=== PATIENT | female | born 1940 | race Caucasian/White ===

== ENCOUNTER 2017-06-27 20:58 | Inpatient (IN) | payer MEDICAID ==
[~2017-06-27] VITALS: Ht 162.6 cm; Wt 71.1 kg
[~2017-06-27 20:58] MED LIST: PANT40TA3 PO; ZOF8 PO
[2017-06-28] MEDS ORDERED: ONDANSETRON 4 MG INJ IV STA (01:13)
[2017-06-28] MEDS ORDERED: SOD CHLORIDE 0.9% 500 ML IV STA (01:13)
[2017-06-28] MEDS ORDERED: morphine 4 MG/ML VIAL IV STA (01:13)
[2017-06-28 02:23] LABS: BASOPHILS % 0.4 % (0.0-2.0); EOSINOPHILS % 0.4 % (0.0-7.0); HEMOGLOBIN 13.6 g/dl (12.0-16.0); LYMPHOCYTES # 2.4 10^3/ul (0.8-2.9); LYMPHOCYTES % 30.6 % (15.0-51.0); MEAN CORPUSCULAR HEMOGLOBIN 28.3 pg (29.0-33.0); MEAN CORPUSCULAR HGB CONC 32.4 g/dl (32.0-37.0); MEAN CORPUSCULAR VOLUME 87.5 fl (82.0-101.0); MEAN PLATELET VOLUME 10.9 fl (7.4-10.4); MONOCYTE # 0.4 10^3/ul (0.3-0.9); MONOCYTES % 5.5 % (0.0-11.0); NEUTROPHIL # 4.9 10^3/ul (1.6-7.5); NEUTROPHILS % 62.8 % (39.0-77.0); PLATELET COUNT 197 10^3/UL (140-415); RED CELL DISTRIBUTION WIDTH 13.3 % (11.5-14.5); WHITE BLOOD COUNT 7.8 10^3/ul (4.8-10.8)
[2017-06-28] MEDS ORDERED: TYL500 PO (02:33)
[2017-06-28 02:43] LABS: ALANINE AMINOTRANSFERASE 42 IU/L (13-69); ALBUMIN 4.1 g/dl (3.3-4.9); ALKALINE PHOSPHATASE 59 IU/L (42-121); ANION GAP 13 (8-16); ASPARTATE AMINO TRANSFERASE 28 IU/L (15-46); BILIRUBIN,INDIRECT 0.7 mg/dl (0-1.1); BILIRUBIN,TOTAL 0.7 mg/dl (0.2-1.3); BLOOD UREA NITROGEN 12 mg/dl (7-20); CALCIUM 9.7 mg/dl (8.4-10.2); CARBON DIOXIDE 26 mmol/L (21-31); CHLORIDE 111 mmol/L (97-110); CREATININE 0.68 mg/dl (0.44-1.00); GLUCOSE 109 mg/dl (70-220); POTASSIUM 3.8 mmol/L (3.5-5.1); SODIUM 146 mmol/L (135-144); TOTAL PROTEIN 7.8 g/dl (6.1-8.1)
[2017-06-28 02:58] LABS: TROPONIN-I < 0.012 ng/ml (0.00-0.12)
--- NOTE | 2017-06-28 03:12 | RADRPT ---
PROCEDURE: CT Abdomen and Pelvis without contrast. CLINICAL INDICATION: Abdominal pain TECHNIQUE: CT scan of the abdomen and pelvis without contrast was performed on a multidetector hig h-resolution CT scanner. The patient was scanned without intravenous contrast. Coronal and sagittal reformatted images were obtained from the axial source images. Images were reviewed on a high-resol Q-go PACS workstation. The total exam CTDI equals 18.76 mGy and the total exam DLP equals 1079.97 m Gy-cm. One or more the following dose reduction techniques were utilized: Automated exposure control, adjus tment of the mA and / or kV according to patient's size, or use of iterative reconstruction techniqu e. COMPARISON: None. FINDINGS: Calcification in thoracoabdominal aorta. Minimal linear atelectasis/fibrosis at lung bases. The isidro ent appears to be status post cholecystectomy. Appearance of marked intrahepatic biliary dilatation in the posterior left and right hepatic lobes which appears to extend to the surgical clips in the p christian hepatis region. The diameter of the extrahepatic hepatic bile duct in the head of the pancreas appears to be approximately 8 mm which can be seen status post cholecystectomy. There is mild scallo ping of the liver margin suggestive of cirrhosis. No abnormality is seen in the spleen. No abnormali ty seen in the pancreas. There is appearance of minimal "hazy" increased density in the central mese ntery which is nonspecific. There is an approximate 8 mm oval structure with density apparently grea ter than fluid arising from the lateral lower left kidney. A small solid mass is possible. There is minimal left hydronephrosis. No right kidney is seen. There is appearance of attenuation of the adrenals. No adrenal mass is seen. No abdominal aortic aneurysm is seen. Calcification in right jennifer c artery. There is appearance of diffuse bladder wall thickening which may at least partially be due to underdistension. The patient appears to be status post hysterectomy. Several diverticula in sigm oid, descending, transverse and ascending colon. There is no specific evidence of acute diverticulit is seen. Surgical clip in the right lateral pelvis. No evidence of acute appendicitis seen. The sugg estion of an unremarkable appendix. No dilated small bowel loops are seen. Small hiatal hernia. The stomach is not distended. No enlarged lymph nodes are seen in the abdomen or pelvis. Degenerative ch anges in thoracolumbar spine. Degenerative changes at sacroiliac joints. Mild levoscoliosis of lumba r spine. IMPRESSION: Severe intrahepatic biliary dilatation in the posterior left and right hepatic lobes of uncertain et iology which appears to extend to surgical clips in the giovanny hepatis region. Cirrhosis. There is an approximate 8 mm oval structure with density apparently greater than fluid arising from the lateral lower left kidney. A small solid mass is possible. Renal ultrasound can be performed. Minimal left hydronephrosis. No right kidney seen. Small hiatal hernia. Please see above. RPTAT: HJES .Nuno Sandhu MD, Date Time Electronically viewed and signed by .Nuno Sandhu MD, on 06/28/2017 03:12 .S/
--- NOTE | 2017-06-28 03:18 | RADRPT ---
PROCEDURE: XR Chest. CLINICAL INDICATION: Abdominal pain. Chest pain. TECHNIQUE: PA and Lateral views of the chest were obtained. COMPARISON: None. FINDINGS: Cardiomegaly with atherosclerotic calcifications in the thoracic aorta. Hypoinflated lungs and patie nt body habitus accentuate pulmonary vascular markings. The lungs otherwise clear. No signs of pleur al fluid or pneumothorax are seen. The osseous structures and soft tissues are unremarkable. IMPRESSION: No evidence for active cardiopulmonary disease. RPTAT: [facility] Physician Carlos Date Time Electronically viewed and signed by Physician Carlos on 06/28/2017 03:18 RS/
--- NOTE | 2017-06-28 03:26 | ERD ---
ER Documentation Chief Complaint Chief Complaint N/V/D STARTING TODAY WITH AP HPI 77-year-old female with nausea vomiting diarrhea and started today with associated abdominal pain. Pain is mild to moderate intensity diffuse in location no exacerbating alleviating factors and started 6 hours ago. 2 episodes of vomiting which nonbilious nonbloody. Tubes of diarrhea which are nonbloody. Patient has had 3 episodes of this over the past month and a half per the family. No fevers no chills. No other current complaints. No sick contacts. ROS All systems reviewed and are negative except as per history of present illness. Medications Home Meds Reported Medications Acetaminophen* (Tylenol*) 500 Mg Tab, 1000 MG PO Q4H Y for PAIN AND OR ELEVATED TEMP, TAB 06/28/17 Discontinued Scripts Ondansetron Hcl* (Zofran* ODT) 8 mg -ODT Tab.disper, 8 MG PO Q6H Y for NAUSEA AND OR VOMITING for 30 Days, TAB Prov:VYASCLAIR V. SUIT ATTENDANT 10/16/15 Pantoprazole* (Protonix*) 40 Mg Tablet.dr, 40 MG PO DAILY for 30 Days, TAB Take 30 mins before breakfast Prov:VYASADNICLAIR V. SUIT ATTENDANT 10/16/15 Allergies Allergies: Coded Allergies: No Known Drug Allergies (Unverified Allergy, Unknown, 06/28/17) PMhx/Soc History of Surgery: Yes (Back sx, cholecystectomy, hernia repair, kidney stone removal) Anesthesia Reaction: No Hx Neurological Disorder: No Hx Respiratory Disorders: No Hx Cardiac Disorders: No Hx Psychiatric Problems: No Hx Miscellaneous Medical Probl: No Hx Alcohol Use: Yes (Occasionally) Hx Substance Use: No Hx Tobacco Use: No Physical Exam Vitals Vital Signs Date Time Temp Pulse Resp B/P Pulse Ox O2 Delivery O2 Flow Rate FiO2 06/28/17 01:00 97.8 68 22 127/79 100 Room Air 06/27/17 21:14 97.4 59 18 180/79 97 Physical Exam Const: [] Head: Atraumatic Eyes: Normal Conjunctiva ENT: Normal External Ears, Nose and Mouth. Neck: Full range of motion..~ No meningismus. Resp: Clear to auscultation bilaterally Cardio: Regular rate and rhythm, no murmurs Abd: Soft, non tender, non distended. Normal bowel sounds Skin: No petechiae or rashes Back: No midline or flank tenderness Ext: No cyanosis, or edema Neur: Awake and alert Psych: Normal Mood and Affect Result Diagram: 06/28/1714206/28/17142 Results 24 hrs Laboratory Tests Test 06/28/17 01:43 White Blood Count 7.810^3/ul Red Blood Count 4.8010^6/ul Hemoglobin 13.6g/dl Hematocrit 42.0% Mean Corpuscular Volume 87.5fl Mean Corpuscular Hemoglobin 28.3pg Mean Corpuscular Hemoglobin Concent 32.4g/dl Red Cell Distribution Width 13.3% Platelet Count 57399^3/UL Mean Platelet Volume 10.9fl Neutrophils % 62.8% Lymphocytes % 30.6% Monocytes % 5.5% Eosinophils % 0.4% Basophils % 0.4% Nucleated Red Blood Cells % 0.0/100WBC Neutrophils # 4.910^3/ul Lymphocytes # 2.410^3/ul Monocytes # 0.410^3/ul Eosinophils # 0.010^3/ul Basophils # 0.010^3/ul Nucleated Red Blood Cells # 0.010^3/ul Sodium Level 146mmol/L Potassium Level 3.8mmol/L Chloride Level 111mmol/L Carbon Dioxide Level 26mmol/L Anion Gap 13 Blood Urea Nitrogen 12mg/dl Creatinine 0.68mg/dl Glucose Level 109mg/dl Calcium Level 9.7mg/dl Total Bilirubin 0.7mg/dl Direct Bilirubin 0.00mg/dl Indirect Bilirubin 0.7mg/dl Aspartate Amino Transf (AST/SGOT) 28IU/L Alanine Aminotransferase (ALT/SGPT) 42IU/L Alkaline Phosphatase 59IU/L Troponin I < 0.012ng/ml Total Protein 7.8g/dl Albumin 4.1g/dl Globulin 3.70g/dl Albumin/Globulin Ratio 1.10 Lipase 53U/L Current Medications Medications (Trade) Dose Ordered Sig/Elle Route PRN Reason Start Time Stop Time Status Last Admin Dose Admin Sodium Chloride (NS) 500 ml @ 500 mls/hr Q1H STAT IV 06/28/17 01:13 06/28/17 02:12 DC Morphine Sulfate (morphine) 4 mg ONCE STAT IV 06/28/17 01:13 06/28/17 01:14 DC Ondansetron HCl (Zofran Inj) 4 mg ONCE STAT IV 06/28/17 01:13 06/28/17 01:14 DC Procedures/MDM EKG: Rate/Rhythm: [Normal Sinus Rhythm] QRS, ST, T-waves: [No changes consistent w/ acute ischemia] Impression: [No evidence of ischemia or arrhythmia] Chest X-ray 1V Interpreted by me: Soft Tissue: No acute abnormalities Bones: No acute abnormalities Mediastinum/Cardiac Silhouette/Lungs: [No acute abnormalities] Medical decision-makin-year-old female with intractable abdominal pain. At this point patient will be admitted to hospitalist for further evaluation and management. Really no evidence of surgical abdomen on physical exam, patient continues to complain of pain. Mesenteric ischemia was a consideration , however patient's exam, history, lab work is not consistent with this at this time Departure Diagnosis: Primary Impression: Abdominal pain Abdominal location: generalized Qualified Code: R10.84 - Generalized abdominal pain Condition: Stable LILIBETH LEE Jun 28, 2017 03:26
[2017-06-28 04:03] VITALS: TEMP 97.8
[2017-06-28 04:30] VITALS: BP 139/68; PULSE 69; RESP 18
[2017-06-28 04:42] VITALS: Ht 162.6 cm; Wt 71.1 kg
[2017-06-28] MEDS ORDERED: morphine 4 MG/ML VIAL IV PRN (06:00)
[2017-06-28] MEDS ORDERED: ALBUTEROL/IPRATROPIUM (NEB) 3 ML AMP HHN PRN (06:30)
[2017-06-28] MEDS ORDERED: ONDANSETRON 4 MG INJ IV PRN (06:30)
[2017-06-28] MEDS ORDERED: NACL 0.9% 3 ML SYG IV SCH (06:30)
[2017-06-28] MEDS: DEXTROSE 5%-0.45% NACL 1,000 ML IV SCH ×3 (06:50→19:26)
--- NOTE | 2017-06-28 07:17 | HP ---
Date/Time of Note Date/Time of Note DATE: 06/28/17 TIME: 07:05 Assessment/Plan VTE Prophylaxis VTE Prophylaxis Intervention: SCD's Lines/Catheters IV C[facility]ter Type (from [facility]): [facility] Assessment/Plan Assessment/Plan ASSESSMENT 77 year old female with Past medical history of ovarian fibroid, status post total abdominal hysterectomy, bilateral salpingo-oophorectomy, resection of the ureter, nausea and vomiting, incarcerated ventral hernia with small bowel obstruction , status post exploratory laparotomy with repair of incarcerated ventral hernia and lysis of adhesions here was a progressively worsening abdominal pain, diarrhea and bilious vomiting with a CT showing severe intrahepatic biliary ductal dilatation, cirrhosis and left lower kidney density , mass PLAN -No clear etiology for the patient's abdominal pain better based on CT scan results, but seems most likely Gastroenteritis vs biliary in nature. -Keep n.p.o. with IV fluid for now -Plan is to obtain MRCP and place a GI consult -Continue pain management -Stool culture and C. difficile -Urology consult for evaluation of left kidney density/mass HPI/ROS Admit Date/Time Admit Date/Time Jun 28, 2017 at 03:25 Hx of Present Illness This is a 77 year old female with Past medical history of ovarian fibroid, status post total abdominal hysterectomy, bilateral salpingo-oophorectomy, resection of the ureter, nausea and vomiting, incarcerated ventral hernia with small bowel obstruction , status post exploratory laparotomy with repair of incarcerated ventral hernia , lysis of adhesions in 2010, who presented to the emergency room complaining of abdominal pain, nausea, vomiting and diarrhea. Patient intermittently has chronic abdominal pain but she has been having progressively worsening pain for the past month or so. Pain is diffuse for the most part and described as sharp with associated nausea and vomiting described as bilious, but non-bloody. She has been having about pain watery diarrhea almost on a daily basis last being yesterday. Denied recent travel and sick contacts. When she presented to the ER, vitals stable. Labs shows a sodium of 146 and chloride 111 otherwise CBC and CMP are within normal limits. Chest x-ray was no acute findings. CT abdomen pelvis shows severe intrahepatic biliary dilatation in the posterior left and right hepatic lobes of uncertain etiology which appears to extend to surgical clips in the giovanny hepatis region. Cirrhosis. There is an approximate 8 mm oval structure with density apparently greater than fluid arising from the lateral lower left kidney. A small solid mass is possible. PMH/Family/Social Social History Smoking Status: Never smoker Exam/Review of Systems Vital Signs Vitals Vital Signs Date Time Temp Pulse Resp B/P Pulse Ox O2 Delivery O2 Flow Rate FiO2 06/28/17 04:30 97.9 69 18 139/68 96 Room Air Exam Constitutional: alert, other (No acute distress) Head: atraumatic, normocephalic Eyes: EOMI, PERRL Respiratory: clear to auscultation, normal air movement Cardiovascular: regular rate and rhythm Gastrointestinal: soft, tender Extremities: normal pulses Labs Result Diagram: 06/28/17 01406/28/17142 Medications Medications Current Medications Dextrose/Sodium Chloride (D5-1/2ns) 1,000 ml @ 100 mls/hr Q10H IV Last administered on 06/28/17t 06:50; Admin Dose 100 MLS/HR; Start 06/28/17 at 06: 01 Ondansetron HCl (Zofran Inj) 4 mg Q6H PRN IV NAUSEA AND/OR VOMITING; Start at 06:30 Morphine Sulfate (morphine) 4 mg Q4H PRN IV SEVERE PAIN LEVEL 7-10; Start at 06:00 Famotidine (Pepcid Iv) 20 mg Q12 IV ; Start 06/28/17 at 09:00 LILIBETH WADE MD Jun 28, 2017 07:16
[2017-06-28 07:44] VITALS: BP 136/67; RESP 20
[2017-06-28] MEDS: FAMOTIDINE 20 MG INJ IV SCH ×2 (08:09→20:17)
[2017-06-28 08:36] LABS: BASOPHILS % 0.6 % (0.0-2.0); EOSINOPHILS # 0.1 10^3/ul (0.0-0.5); EOSINOPHILS % 1.5 % (0.0-7.0); HEMATOCRIT 38.9 % (37.0-47.0); HEMOGLOBIN 12.9 g/dl (12.0-16.0); LYMPHOCYTES # 2.5 10^3/ul (0.8-2.9); LYMPHOCYTES % 36.8 % (15.0-51.0); MEAN CORPUSCULAR HGB CONC 33.2 g/dl (32.0-37.0); MEAN CORPUSCULAR VOLUME 87.4 fl (82.0-101.0); MEAN PLATELET VOLUME 10.6 fl (7.4-10.4); MONOCYTE # 0.6 10^3/ul (0.3-0.9); MONOCYTES % 8.4 % (0.0-11.0); NEUTROPHIL # 3.5 10^3/ul (1.6-7.5); NEUTROPHILS % 52.6 % (39.0-77.0); PLATELET COUNT 178 10^3/UL (140-415); RED BLOOD COUNT 4.45 10^6/ul (4.20-5.40); RED CELL DISTRIBUTION WIDTH 13.1 % (11.5-14.5); WHITE BLOOD COUNT 6.7 10^3/ul (4.8-10.8)
[2017-06-28 09:09] LABS: ALBUMIN 3.5 g/dl (3.3-4.9); ALBUMIN/GLOBULIN RATIO 1.02; BILIRUBIN,INDIRECT 0.7 mg/dl (0-1.1); BILIRUBIN,TOTAL 0.7 mg/dl (0.2-1.3); CREATININE 0.65 mg/dl (0.44-1.00); MAGNESIUM 1.8 mg/dl (1.7-2.5); PHOSPHORUS 3.2 mg/dl (2.5-4.9); POTASSIUM 3.5 mmol/L (3.5-5.1); TOTAL PROTEIN 6.9 g/dl (6.1-8.1)
[2017-06-28 11:23] LABS: ADD UMIC NO; UR ASCORBIC ACID NEGATIVE (NEGATIVE); UR BILIRUBIN (Dip) NEGATIVE (NEGATIVE); UR BLOOD (Dip) NEGATIVE (NEGATIVE); UR CLARITY CLEAR (CLEAR); UR COLOR YELLOW (YELLOW); UR GLUCOSE (Dip) NEGATIVE (NEGATIVE); UR KETONES (Dip) NEGATIVE (NEGATIVE); UR LEUKOCYTE ESTERASE (Dip) NEGATIVE Leu/ul (NEGATIVE); UR NITRITE (Dip) NEGATIVE (NEGATIVE); UR SPECIFIC GRAVITY (Dip) 1.012 (1.003-1.030); UR TOTAL PROTEIN (Dip) NEGATIVE (NEGATIVE); UR UROBILINOGEN (Dip) NEGATIVE (NEGATIVE)
[2017-06-28] MEDS ORDERED: morphine 2 MG INJ IV PRN (14:00)
[2017-06-28 15:31] VITALS: BP 138/65; RESP 20
--- NOTE | 2017-06-28 18:52 | RADRPT ---
PROCEDURE: MRI abdomen without contrast; MRCP CLINICAL INDICATION: abdominal pain TECHNIQUE: Multiplanar, multisequence imaging of the abdomen was obtained without contrast. Imagi ng includes axial T2, T2 fat sat, in and out of phase gradient images, and noncontrast T1 fat-satura param images. In addition, a dedicated high T2 signal intensity MRCP images were obtained in multiple planes with 3-D reconstructions. COMPARISON: CT 06/28/2017 FINDINGS: MRCP: The gallbladder is not visualized. Along the posterior margin of both the left and right hepatic lob e there are numerous serpiginous appearing T2 hyperintense structures. The remaining intrahepatic bi liary ducts are otherwise nondilated and the common duct is borderline enlarged measuring 9 mm with no evidence of filling defect along its course. The pancreatic duct is not dilated. MRI abdomen: The remaining hepatic parenchyma is otherwise uniform signal intensity without gross evidence of a h epatic mass. Flow void is seen within the portal vein. The right kidney is resected. There is mild prominence of the left renal calyces without ion hydro nephrosis. There is uniform signal intensity of the left renal parenchyma. There is a small hiatus hernia. The pancreas is uniform without surrounding inflammation. There is no evidence of bowel obstruction or inflammatory changes of the mesentery. There are no en larged lymph nodes. There is no acute osseous abnormality. Degenerative changes seen in the lumbar spine. Aortic atherosclerotic changes are partially visualized. IMPRESSION: Numerous T2 hyperintense serpiginous structures are seen along the posterior margin of the left and right hepatic lobes and this is indeterminate. These could represent marginal dilated biliary ducts versus serpiginous varicose vessels. This can be better assessed with contrast enhanced CT or MRI to rule out vascular origin of these structures. No other intrahepatic biliary ducts appear dilated and there is no evidence of choledocholithiasis. The common duct is mildly enlarged however this may be related to postcholecystectomy physiology. Small hiatus hernia. Status post right nephrectomy. There is mild prominence of the left renal calyces without ion hydr onephrosis. No evidence of bowel obstruction. RPTAT: AA .Zayda Marsh MD, MD Date Time Electronically viewed and signed by .Zayda Marsh MD, MD on 06/28/2017 18:52 .J/
[2017-06-28 19:21] VITALS: BP 136/66; RESP 16
[2017-06-29 02:48] VITALS: BP 132/66; RESP 16
[2017-06-29] MEDS: DEXTROSE 5%-0.45% NACL 1,000 ML IV SCH ×2 (05:36→21:21)
[2017-06-29 05:57] LABS: BASOPHIL # 0.1 10^3/ul (0.0-0.1); BASOPHILS % 0.8 % (0.0-2.0); EOSINOPHILS # 0.1 10^3/ul (0.0-0.5); EOSINOPHILS % 2.2 % (0.0-7.0); HEMATOCRIT 39.3 % (37.0-47.0); HEMOGLOBIN 12.6 g/dl (12.0-16.0); LYMPHOCYTES # 2.5 10^3/ul (0.8-2.9); LYMPHOCYTES % 41.8 % (15.0-51.0); MEAN CORPUSCULAR HGB CONC 32.1 g/dl (32.0-37.0); MEAN CORPUSCULAR VOLUME 87.3 fl (82.0-101.0); MEAN PLATELET VOLUME 10.8 fl (7.4-10.4); MONOCYTE # 0.5 10^3/ul (0.3-0.9); NEUTROPHIL # 2.8 10^3/ul (1.6-7.5); NEUTROPHILS % 46.9 % (39.0-77.0); PLATELET COUNT 155 10^3/UL (140-415); RED CELL DISTRIBUTION WIDTH 13.2 % (11.5-14.5); WHITE BLOOD COUNT 5.9 10^3/ul (4.8-10.8)
[2017-06-29 06:50] LABS: CALCIUM 8.5 mg/dl (8.4-10.2); CREATININE 0.75 mg/dl (0.44-1.00); MAGNESIUM 1.7 mg/dl (1.7-2.5); PHOSPHORUS 3.9 mg/dl (2.5-4.9); POTASSIUM 3.7 mmol/L (3.5-5.1)
[2017-06-29 07:37] VITALS: BP 128/61; RESP 19
[2017-06-29] MEDS: FAMOTIDINE 20 MG INJ IV SCH ×2 (09:12→21:20)
--- NOTE | 2017-06-29 11:27 | PN ---
Date/Time of Note Date/Time of Note DATE: 06/29/17 TIME: 11:23 Assessment/Plan VTE Prophylaxis VTE Prophylaxis Intervention: SCD's Lines/Catheters IV [facility]ter Type (from [facility]): Peripheral IV Urinary Cath still in place: No Assessment/Plan Chief Complaint/Hosp Course ASSESSMENT/PLAN: 77 year old female with Past medical history of ovarian fibroid, status post total abdominal hysterectomy, bilateral salpingo-oophorectomy, resection of the ureter, nausea and vomiting, incarcerated ventral hernia with small bowel obstruction , status post exploratory laparotomy with repair of incarcerated ventral hernia and lysis of adhesions, p/w progressively worsening abdominal pain, diarrhea and bilious vomiting with a CT showing severe intrahepatic biliary ductal dilatation, cirrhosis and left lower kidney density, mass -No clear etiology for the patient's abdominal pain better based on CT scan results, but seems most likely Gastroenteritis vs biliary in nature. -For now keep n.p.o. with IV fluid for now -Follow-up GI consult recommendations -Continue pain management -Follow-up stool culture and C. difficile -Consider urology consult for evaluation of left kidney density/mass Problems: Subjective 24 Hr Interval Summary Free Text/Dictation Patient has less abdominal pain today. No diarrhea since admission. No acute events overnight. Still n.p.o. patient had MRCP performed yesterday. Exam/Review of Systems Vital Signs Vitals Vital Signs Date Time Temp Pulse Resp B/P Pulse Ox O2 Delivery O2 Flow Rate FiO2 06/29/17 07:37 98.0 71 19 128/61 98 06/28/17 04:30 Room Air Intake and Output 06/28/17 06/28/17 06/29/17 15:00 23:00 07:00 Intake Total 1240 ml 1000 ml Output Total 200 ml Balance 1040 ml 1000 ml Exam Constitutional: alert, other (No acute distress) Head: atraumatic, normocephalic Eyes: EOMI, PERRL Respiratory: clear to auscultation, normal air movement Cardiovascular: regular rate and rhythm Gastrointestinal: soft, less tender Extremities: normal pulses Results Result Diagram: 06/29/17 0504 06/29/17 0504 Results 24 hrs Laboratory Tests Test 06/29/17 05:04 White Blood Count 5.9 Red Blood Count 4.50 Hemoglobin 12.6 Hematocrit 39.3 Mean Corpuscular Volume 87.3 Mean Corpuscular Hemoglobin 28.0 L Mean Corpuscular Hemoglobin Concent 32.1 Red Cell Distribution Width 13.2 Platelet Count 155 Mean Platelet Volume 10.8 H Neutrophils % 46.9 Lymphocytes % 41.8 Monocytes % 8.0 Eosinophils % 2.2 Basophils % 0.8 Nucleated Red Blood Cells % 0.0 Neutrophils # 2.8 Lymphocytes # 2.5 Monocytes # 0.5 Eosinophils # 0.1 Basophils # 0.1 Nucleated Red Blood Cells # 0.0 Sodium Level 142 Potassium Level 3.7 Chloride Level 112 H Carbon Dioxide Level 25 Anion Gap 9 Blood Urea Nitrogen 8 Creatinine 0.75 Glucose Level 101 Calcium Level 8.5 Phosphorus Level 3.9 Magnesium Level 1.7 Medications Medications Current Medications Dextrose/Sodium Chloride (D5-1/2ns) 1,000 ml @ 100 mls/hr Q10H IV Last administered on 06/29/17 05:36; Admin Dose 100 MLS/HR; Start 06/28/17 at 06: 01 Ondansetron HCl (Zofran Inj) 4 mg Q6H PRN IV NAUSEA AND/OR VOMITING; Start at 06:30 Famotidine (Pepcid Iv) 20 mg Q12 IV Last administered on 06/29/17 09:12; Admin Dose 20 MG; Start 06/28/17 at 09:00 Morphine Sulfate (morphine) 2 mg Q4H PRN IV SEVERE PAIN LEVEL 7-10; Start at 14:00 Procedures Procedures MRCP: IMPRESSION: Numerous T2 hyperintense serpiginous structures are seen along the posterior margin of the left and right hepatic lobes and this is indeterminate. These could represent marginal dilated biliary ducts versus serpiginous varicose vessels. This can be better assessed with contrast enhanced CT or MRI to rule out vascular origin of these structures. No other intrahepatic biliary ducts appear dilated and there is no evidence of choledocholithiasis. The common duct is mildly enlarged however this may be related to postcholecystectomy physiology. Small hiatus hernia. Status post right nephrectomy. There is mild prominence of the left renal calyces without ion hydronephrosis. No evidence of bowel obstruction. NANCI BROTHERS Jun 29, 2017 11:27
--- NOTE | 2017-06-29 12:50 | CONS ---
Date/Time of Note Date/Time of Note DATE: 06/29/17 TIME: 12:23 Assessment/Plan Assessment/Plan Chief Complaint/Hosp Course Summary Assessment and Plan: Assessment: Abdominal pain/improved Diarrhea/improved Vomiting/improved Plan: Patient results of MRCP we will move forward with three-phase CAT scan of the liver with IV contrast to rule out marginal dilated biliary ducts versus serpiginous varicose vessels. Will start clear liquid diet Clinical picture does not warrant need for EGD/colon at this time However patient should f/u as an out-patient for EGD/colonoscopy Pt seen in collaboration with Dr. Sage Chief Complaint/Reason for Visit: Abdominal pain Diarrhea vomiting History of Present Illness: This is a pleasant 77-year-old female with no pertinent past medical history, complaining of abdominal pain diarrhea and vomiting on and off for the past 3 weeks was admitted at [facility] and discharged a few days later. She continued to complain of diarrhea, vomiting and dizziness, [facility]. She has not had any further episodes of diarrhea or vomiting since admission, and currently denies any abdominal pain, nausea, hematochezia, hematemesis, unintentional weight loss. She has never had a colonoscopy or EGD, and denies any family history of colon cancer. CAT scan was obtained, in regards to GI, revealed cirrhosis, severe intrahepatic biliary dilatation in the posterior left and right hepatic lobes of uncertain etiology which appears to extend to surgical clips in the giovanny hepatis region, an MRCP was ordered and reviewed. Will move forward with [address] of the liver to r/o dilated biliary ducts vs vascular origin. EGD/Colonoscopy not warranted at this time as symptoms have improved. Past Medical History: No pertinent history Has never had a colonoscopy Allergies: No known drug allergies Family History: No family history of colon cancer Social History: Denies alcohol use Denies drug use Denies smoking PHYSICAL EXAMINATION: GENERAL: Well developed, well nourished, alert & oriented x 3, in no acute distress SKIN: No lesions, no stigmata chronic liver disease, no evidence of bleeding diathesis LYMPHATIC: No palpable lymphadenopathy. HEAD: Normocephalic, atraumatic, no tenderness. EYES: Pupils equal reactive to light and accommodation, full extraocular movements, sclera clear, non-icteric, no discharge. EARS/NOSE AND THROAT: Ears normal, nose normal, oropharynx normal, oral membranes well hydrated without lesions. NECK: Supple, no masses, thyroid normal, JVP within normal limits, carotids normal without bruits. CHEST: Inspection within normal limits. CARDIOVASCULAR: Heart: Regular rate and rhythm, no murmurs, gallops or rubs. Peripheral pulses present within normal limits, no cyanosis, clubbing or edemas. No pulsatile abdominal mass RESPIRATORY: Lungs clear to auscultation and percussion, no wheezing, no rubs GASTROINTESTINAL AND LIVER: Abdomen: Soft, non tenderness, non-distended, no hernias, no masses, hepatomegaly, no ascites, no guarding, no rebound tenderness , normoactive bowel sounds. Rectal: Deferred. GENITOURINARY: Female genitalia within normal limits. EXTREMITIES: No cyanosis, clubbing or edema. Problems: Consultation Date/Type/Reason Admit Date/Time Jun 28, 2017 at 03:25 Date of Consultation: Jun 29, 2017 Type of Consultation: GI Reason for Consultation Abdominal pain Constitutional: no complaints Eyes: no complaints ENT: no complaints Respiratory: no complaints Cardiovascular: no complaints Gastrointestinal: No blood, No constipation, No decreased appetite, No diarrhea , No flatus, No nausea, No pain, No vomiting Musculoskeletal: no complaints Skin: no complaints Past Surgical History Past Surgical Hx: cholecystectomy, other (Hysterectomy, ) Family History Significant Family History: other (No family history of colon cancer) Social History Alcohol Use: none Smoking Status: Never smoker Drug Use: none Exam/Review of Systems Vital Signs Vitals Vital Signs Date Time Temp Pulse Resp B/P Pulse Ox O2 Delivery O2 Flow Rate FiO2 06/29/17 07:37 98.0 71 19 128/61 98 06/28/17 04:30 Room Air Intake and Output 06/28/17 06/28/17 06/29/17 15:00 23:00 07:00 Intake Total 1240 ml 1000 ml Output Total 200 ml Balance 1040 ml 1000 ml Results Result Diagram: 06/29/17 0504 06/29/17 0504 Results 24 hrs Laboratory Tests Test 06/29/17 05:04 White Blood Count 5.9 Red Blood Count 4.50 Hemoglobin 12.6 Hematocrit 39.3 Mean Corpuscular Volume 87.3 Mean Corpuscular Hemoglobin 28.0 L Mean Corpuscular Hemoglobin Concent 32.1 Red Cell Distribution Width 13.2 Platelet Count 155 Mean Platelet Volume 10.8 H Neutrophils % 46.9 Lymphocytes % 41.8 Monocytes % 8.0 Eosinophils % 2.2 Basophils % 0.8 Nucleated Red Blood Cells % 0.0 Neutrophils # 2.8 Lymphocytes # 2.5 Monocytes # 0.5 Eosinophils # 0.1 Basophils # 0.1 Nucleated Red Blood Cells # 0.0 Sodium Level 142 Potassium Level 3.7 Chloride Level 112 H Carbon Dioxide Level 25 Anion Gap 9 Blood Urea Nitrogen 8 Creatinine 0.75 Glucose Level 101 Calcium Level 8.5 Phosphorus Level 3.9 Magnesium Level 1.7 Medications Medications Current Medications Dextrose/Sodium Chloride (D5-1/2ns) 1,000 ml @ 100 mls/hr Q10H IV Last administered on 06/29/17 05:36; Admin Dose 100 MLS/HR; Start 06/28/17 at 06: 01 Ondansetron HCl (Zofran Inj) 4 mg Q6H PRN IV NAUSEA AND/OR VOMITING; Start at 06:30 Famotidine (Pepcid Iv) 20 mg Q12 IV Last administered on 06/29/17 09:12; Admin Dose 20 MG; Start 06/28/17 at 09:00 Morphine Sulfate (morphine) 2 mg Q4H PRN IV SEVERE PAIN LEVEL 7-10; Start at 14:00 JUANJOSE CHRISTIANSON Jun 29, 2017 12:34
[2017-06-29 14:00] VITALS: BP 132/69; RESP 19
[2017-06-29] MEDS ORDERED: IOHEXOL 300MG/ML 150 ML BTL ONE (14:33)
[2017-06-29] MEDS ORDERED: SOD CHLORIDE 0.9% 100 ML ONE (14:33)
[2017-06-29 19:45] VITALS: BP 129/62; RESP 18
[2017-06-30 02:00] VITALS: BP 132/63; RESP 18
--- NOTE | 2017-06-30 03:32 | RADRPT ---
PROCEDURE: CT abdomen and pelvis with contrast. CLINICAL INDICATION: Intrahepatic biliary dilatation. TECHNIQUE: IV contrast enhanced CT examination of the abdomen and pelvis, with axial, sagittal and coronal reformatted images. 100 cc Omnipaque 300 nonionic IV contrast were employed. Automated dos e exposure control was employed. CTDI: 18.45 mGy and DLP: 1041.47 mGy-cm. COMPARISON: None. FINDINGS: CT abdomen: The lung bases are clear. The heart size is normal, without pericardial thickening or effusion. Mil d to moderate hiatal hernia. The liver again demonstrates subserosal intrahepatic biliary dilatation principally at the undersurf tanika of the left hepatic and right hepatic lobes. This suggests a degree of biliary obstruction, othe rwise nonspecific. Consider MRI correlation if clinically required. Otherwise, the liver is normal i n size and density without focal mass. The spleen is normal in size and homogeneous in density. Th e stomach is partially collapsed, but is grossly unremarkable. The pancreas as visualized is normal . . The gallbladder is surgically absent; and biliary tree is unremarkable and there is no evidence for biliary dilatation. The adrenal glands are symmetric and normal. The right kidney is not identifi ed and may be surgically versus congenitally absent. Small exophytic likely cyst at the left kidney. No renal calculus or obstructive uropathy or mass lesion is seen. The aorta is of normal caliber. Aortic vascular calcifications are present. There is no retroperit vilchis lymphadenopathy. The giovanny hepatis region is clear. Scattered diverticula throughout the colon. The bowel and mesentery are otherwise unremarkable. CT pelvis: Nonspecific mural thickening in the region of the ileocecal junction. Findings may represent an infe ctious versus inflammatory etiology. The small bowel loops situated within the pelvis are unremarkable. The pelvic organs are normal. T he pelvic sidewalls and inguinal regions are clear. The sigmoid colon and rectum are all unremarkab le. No mass, lymphadenopathy, or free fluid is seen. No acute inflammation is seen. The appendix is unremarkable. The surrounding osseous structures are remarkable for mild degenerative spondylosis of the spine. Li clarice degree of spinal stenosis secondary to posterior disc osteophyte complexes at the T12-L1 and L1 -2 levels. No osteolytic or osteoblastic lesion is detected. IMPRESSION: 1. Subserosal intrahepatic biliary dilatation again seen principally at the undersurface of the live r, similar in appearance to the prior examination. 2. This is otherwise nonspecific. 3. Mural thickening in the region of the ileocecal junction, which may represent an infectious versu s inflammatory etiology. 4. The appendix is otherwise unremarkable. 5. The right kidney is absent. RPTAT: [facility] Physician Carlos Date Time Electronically viewed and signed by Physician Carlos on 06/30/2017 03:32 RS/
[2017-06-30] MEDS: DEXTROSE 5%-0.45% NACL 1,000 ML IV SCH (07:21)
[2017-06-30 08:00] VITALS: BP 127/60; RESP 18
[2017-06-30] MEDS: FAMOTIDINE 20 MG INJ IV SCH (08:13)
--- NOTE | 2017-06-30 11:38 | PDOCDIS ---
Discharge Instructions CONDITION Patient Condition: Stable HOME CARE INSTRUCTIONS: Special Diet: REGULAR ACTIVITY: Activity Restrictions: Slowly Increase Activity FOLLOW UP/APPOINTMENTS Follow-up Plan Please take your medications as prescribed. Please follow-up with your regular doctor in the clinic in the next 1 week. NANCI BROTHERS Jun 30, 2017 11:38
--- NOTE | 2017-06-30 12:45 | DS ---
DATE OF ADMISSION: 06/28/2017 DATE OF DISCHARGE: 06/30/2017 HOSPITAL COURSE: This is a 77-year-old female originally admitted on June 28, 2017 and being discharged home on June 30, 2017, pending final evaluation by GI team. Patient initially came in with abdominal pain symptoms. She has a prior history of multiple abdominal surgeries including ovarian fibroid surgery, JOSE/BSO, resection of her ureter, and prior incarcerated ventral hernia with small bowel obstruction. In any event, she was admitted and made NPO. She had an MRCP performed that showed the following: There were numerous T2 hyperintense serpiginous structures seen along the posterior margin of the left and right hepatic lobes, indeterminate, could represent marginal dilated biliary ducts versus serpiginous varicose veins. She was seen by GI team and underwent triple-phase CT scan of abdomen and pelvis that also showed subserosal intrahepatic biliary dilatation that was again seen at the undersurface of the liver, similar in appearance to prior exam, otherwise nonspecific. There was some mural thickening in the region of the ileocecal junction may represent infectious versus inflammatory cause. Her labs were stable, however. She also presented with diarrhea symptoms at home and she had a C difficile test that was performed here that was negative. Preliminarily test negative. Over the course of her hospital stay, her labs remained stable. Her vitals are stable. Her abdominal pain symptoms improved. She was started on p.o. diet, which she tolerated well, and once we get clearance from the GI team, if they clear her, she will be discharged home today in improved condition. She is recommended for an outpatient EGD and colonoscopy as well. DISCHARGE MEDICATIONS: If she does go home today, she will go home with medications, Tylenol 1000 mg q.4 hours p.r.n. FOLLOWUP: Again she will need follow up with primary care doctor team and GI team in the clinic in the next 1 week. FINAL DIAGNOSES: 1. Abdominal pain, now resolving. Unclear etiology with intrahepatic biliary duct dilatation seen on MRI and CT scan of abdomen and pelvis. Again nonspecific findings. 2. History ovarian fibroids. 3. Prior history of total abdominal hysterectomy/bilateral salpingo-oopherectomy. 4. Prior history of resection of the ureter. 5. Nausea, vomiting, diarrhea, now resolved with Clostridium difficile test negative. 6. History of incarcerated ventral hernia with small bowel obstruction in the past, resolved. 7. Prior history of exploratory laparotomy with repair of incarcerated ventral hernia and lysis of adhesions in the past. 8. An 8 mm oval structure with density apparently greater than fluid arising from the lateral lower left kidney with a small solid mass possible, no present issues with normal BUN and creatinine levels. Recommending outpatient followup with her doctor. 9. Prior history of cirrhosis. TIME SPENT ON DISCHARGE: 50 minutes. Dictated By: Domenico Darby MD /carlota/vandana /Document#: [id number]
[2017-06-30 14:00] VITALS: BP 135/65; RESP 18
--- NOTE | 2017-06-30 14:26 | PN ---
Date/Time of Note Date/Time of Note DATE: 06/30/17 TIME: 14:23 Assessment/Plan VTE Prophylaxis VTE Prophylaxis Intervention: SCD's Lines/Catheters IV Catheter Type (from Nrs): Peripheral IV Urinary Cath still in place: No Assessment/Plan Chief Complaint/Hosp Course Summary Assessment and Plan: Assessment: Abdominal pain/improved Diarrhea/improved Vomiting/improved Plan: repeat ct with no sig change- ok to d/c pt from gi point of view Pt to f/u as an out-patient for EGD/colonoscopy Pt seen in collaboration with Dr. Sage Subjective: Course reviewed with nursing staff Patient interviewed and examined All labs, imaging and other results reviewed The patient feeling well denies abd pain, n/v, or diarrhea did have x2 loose stools yesterday, patient states this is her baseline. Pt to f/u for out-pt colonoscopy PHYSICAL EXAMINATION: GENERAL: Well developed, well nourished, alert & oriented x 3, in no acute distress SKIN: No lesions, no stigmata chronic liver disease, no evidence of bleeding diathesis LYMPHATIC: No palpable lymphadenopathy. HEAD: Normocephalic, atraumatic, no tenderness. EYES: Pupils equal reactive to light and accommodation, full extraocular movements, sclera clear, non-icteric, no discharge. EARS/NOSE AND THROAT: Ears normal, nose normal, oropharynx normal, oral membranes well hydrated without lesions. NECK: Supple, no masses, thyroid normal, JVP within normal limits, carotids normal without bruits. CHEST: Inspection within normal limits. CARDIOVASCULAR: Heart: Regular rate and rhythm, no murmurs, gallops or rubs. Peripheral pulses present within normal limits, no cyanosis, clubbing or edemas. No pulsatile abdominal mass RESPIRATORY: Lungs clear to auscultation and percussion, no wheezing, no rubs GASTROINTESTINAL AND LIVER: Abdomen: Soft, non tenderness, non-distended, no hernias, no masses, hepatomegaly, no ascites, no guarding, no rebound tenderness , normoactive bowel sounds. Rectal: Deferred. GENITOURINARY: Female genitalia within normal limits. EXTREMITIES: No cyanosis, clubbing or edema. Problems: Exam/Review of Systems Vital Signs Vitals Vital Signs Date Time Temp Pulse Resp B/P Pulse Ox O2 Delivery O2 Flow Rate FiO2 06/30/17 08:00 97.5 69 18 127/60 99 10/25/17 04:30 Room Air Intake and Output 06/29/17 06/29/17 06/30/17 14:59 22:59 06:59 Intake Total 1360 ml 360 ml Output Total 600 ml Balance 760 ml 360 ml Exam Constitutional: alert, oriented Psych: nl mood/affect, no complaints Eyes: nl conjunctiva ENMT: nl external ears & nose Neck: non-tender, supple Respiratory: clear to auscultation, normal air movement Cardiovascular: regular rate and rhythm Gastrointestinal: bowel sounds, soft, No ascites, No distended, No firm, No mass, No rebound or guarding, No splenomegaly, No surgical scars, No tender Results Result Diagram: 06/29/17 0504 06/29/17 050 Medications Medications Current Medications Dextrose/Sodium Chloride (D5-1/2ns) 1,000 ml @ 100 mls/hr Q10H IV Last administered on 06/30/17 07:21; Admin Dose 100 MLS/HR; Start 06/28/17 at 06: 01 Ondansetron HCl (Zofran Inj) 4 mg Q6H PRN IV NAUSEA AND/OR VOMITING; Start at 06:30 Famotidine (Pepcid Iv) 20 mg Q12 IV Last administered on 06/30/17 08:13; Admin Dose 20 MG; Start 06/28/17 at 09:00 Morphine Sulfate (morphine) 2 mg Q4H PRN IV SEVERE PAIN LEVEL 7-10; Start at 14:00 JUANJSOE CHRISTIANSON Jun 30, 2017 14:26
== END 2017-06-30 16:00 | disposition home or self-care (01) | DRG 392 ==
LOC: E/R 20:58 → MS1 06-28 03:25
PROVIDERS: ADMIT Internal Medicine; ATTEND Internal Medicine
DX: R10.84 Generalized abdominal pain (principal); R11.2 Nausea with vomiting, unspecified; R19.7 Diarrhea, unspecified
CPT/HCPCS: 36415; 71010; 74176; 74177; 74181; 80048; 80053; 81003; 83690; 83735; 84100; 84484; 85025; 87045; 87075; 93005; 96374; 96375; J2270; J2405; J7040; J7042; Q9967

== ENCOUNTER 2019-01-10 13:10 | Emergency (ER) | payer MEDICAID ==
[~2019-01-10] VITALS: Wt 69.0 kg
[~2019-01-10 13:10] MED LIST changes: -PANT40TA3 PO; +TYL500 PO; -ZOF8 PO
[2019-01-10] MEDS ORDERED: morphine 4 MG/ML VIAL IV STA (17:45)
[2019-01-10] MEDS ORDERED: ONDANSETRON 4 MG INJ IV STA ×2 (17:45→19:23)
[2019-01-10] MEDS ORDERED: SOD CHLORIDE 0.9% 1,000 ML IV STA ×2 (17:56→19:23)
[2019-01-10] MEDS ORDERED: FAMOTIDINE 20 MG INJ IV STA (17:56)
[2019-01-10] MEDS ORDERED: DICYCLOMINE 10 MG CAP PO ONE (18:00)
[2019-01-10] MEDS ORDERED: ONDA4TAB14 PO (19:39)
[2019-01-10] MEDS ORDERED: DICY10CA40 PO (19:39)
--- NOTE | 2019-01-10 19:46 | ERD ---
ER Documentation Chief Complaint Chief Complaint abd pain since last night with nausea and vomiting. denies cp or sob HPI This is a very pleasant 78-year-old female no past medical history the presents to the emergency department complaining of abdominal pain. She indicates the abdominal pain started yesterday evening. However she stated first before the abdominal pain she developed multiple episodes of nonbloody nonbilious emesis. She also had loose watery stools. The abdominal pain is exacerbated prior to her stooling which she describes as a cramping-like sensation. She said no fevers or shaking or chills. She denies any recent travel. She said no recent hospitalizations. She denies any recent antibiotic use. She said no past surgical history as of the abdomen. She is no chest pain. She has no shortness of breath. ROS All systems reviewed and are negative except as per history of present illness. Medications Home Meds Active Scripts Dicyclomine HCl (Dicyclomine HCl) 10 Mg Capsule, 10 MG PO TID PRN for ABDOMINAL CRAMPING, #20 CAP Prov:GIO HANNON MD 01/10/19 Ondansetron (Ondansetron Odt) 4 Mg Tab.rapdis, 4 MG PO Q6H PRN for NAUSEA AND/OR VOMITING, #20 TAB Prov:GIO HANNON MD 01/10/19 Discontinued Reported Medications Acetaminophen* (Tylenol*) 500 Mg Tab, 1000 MG PO Q4H PRN for PAIN AND OR E LEVATED TEMP, TAB 06/28/17 Allergies Allergies: Coded Allergies: No Known Drug Allergies (Unverified Allergy, Unknown, 01/10/19) PMhx/Soc History of Surgery: Yes (GALLBLADDER SX-2010,HERNIA SX-2009) Anesthesia Reaction: No Hx Neurological Disorder: No Hx Respiratory Disorders: No Hx Cardiac Disorders: No Hx Psychiatric Problems: No Hx Miscellaneous Medical Probl: No Hx Alcohol Use: Yes (ONLY ON SPECIAL OCCASION) Hx Substance Use: No Hx Tobacco Use: No Smoking Status: Never smoker Physical Exam Vitals Vital Signs Date Temp Pulse Resp B/P (MAP) Pulse Ox O2 O2 Flow FiO2 Time Delivery Rate 01/10/19 98.0 78 20 124/69 97 13:13 (87) Physical Exam Constitutional:Well-developed. Well-nourished. HEENT:Normocephalic. Atraumatic.Pupils were equal round reactive to light. Dry mucous membranes.No tonsillar exudates. Neck: No nuchal rigidity. No lymphadenopathy. No posterior cervical spine tenderness or step-offs. Respiratory: Not using accessory muscles of respiration.Lungs were clear to auscultation bilaterally. No rhonchi. No rales. No wheezing. Cardiovascular: Regular rate regular rhythm.No murmurs. No rubs were appreciated.S1, S2 normal. Distal pulses are palpable 2+ bilaterally. GI: Abdomen was soft. Mild tenderness in the left lower quadrant. Non Distended. No pulsatile abdominal masses or bruits. No rebound. No guarding. Bowel sounds were present and normal. Muscle skeletal: Full range of motion of both the upper and lower extremities bilaterally.Normal muscle tone.No assymetrical calf tenderness or swelling. Skin: No petechia, no purpura. No lesions on the palms or the soles of the feet. No maculopapular rash. NEURO: Patient was alert, awake, orientated x3.No facial droop. Gait observed and normal with no ataxia.Speech had regular rate and rhythm. No focal neurological deficits. Result Diagram: 01/10/19185001/10/191850 Results 24 hrs Laboratory Tests Test 01/10/19 18:51 White Blood Count 8.7 10^3/ul Red Blood Count 5.04 10^6/ul Hemoglobin 14.3 g/dl Hematocrit 44.2 % Mean Corpuscular Volume 87.7 fl Mean Corpuscular Hemoglobin 28.4 pg Mean Corpuscular Hemoglobin Concent 32.4 g/dl Red Cell Distribution Width 13.0 % Platelet Count 199 10^3/UL Mean Platelet Volume 10.4 fl Immature Granulocytes % 0.300 % Neutrophils % 60.8 % Lymphocytes % 32.8 % Monocytes % 5.4 % Eosinophils % 0.2 % Basophils % 0.5 % Nucleated Red Blood Cells % 0.0 /100WBC Immature Granulocytes # 0.030 10^3/ul Neutrophils # 5.3 10^3/ul Lymphocytes # 2.9 10^3/ul Monocytes # 0.5 10^3/ul Eosinophils # 0.0 10^3/ul Basophils # 0.0 10^3/ul Nucleated Red Blood Cells # 0.0 10^3/ul Prothrombin Time 13.2 Sec Prothrombin Time Ratio 1.0 INR International Normalized Ratio 0.99 Sodium Level 146 mmol/L Potassium Level 4.2 mmol/L Chloride Level 109 mmol/L Carbon Dioxide Level 26 mmol/L Anion Gap 11 Blood Urea Nitrogen 13 mg/dl Creatinine 0.61 mg/dl Est Glomerular Filtrat Rate mL/min mL/min Glucose Level 105 mg/dl Calcium Level 9.7 mg/dl Total Bilirubin 1.0 mg/dl Direct Bilirubin 0.00 mg/dl Indirect Bilirubin 1.0 mg/dl Aspartate Amino Transf (AST/SGOT) 29 IU/L Alanine Aminotransferase (ALT/SGPT) 23 IU/L Alkaline Phosphatase 67 IU/L Troponin I < 0.012 ng/ml Total Protein 8.1 g/dl Albumin 4.5 g/dl Globulin 3.60 g/dl Albumin/Globulin Ratio 1.25 Lipase 47 U/L Current Medications Medications Dose Sig/Elle Start Time Status Last (Trade) Ordered Route PRN Stop Time Admin Dose Reason Admin Morphine 4 mg ONCE STAT 01/10/19 DC 01/10/19 Sulfate IV 17:45 01/10/19 18:53 (morphine) 17:47 Ondansetron 4 mg ONCE STAT 01/10/19 DC 01/10/19 HCl (Zofran IV 17:45 01/10/19 18:53 Inj) 17:47 Sodium 1,000 ml @ Q1H STAT 01/10/19 DC 01/10/19 Chloride 1,000 mls/hr IV 17:56 01/10/19 18:53 18:55 Famotidine 20 mg ONCE STAT 01/10/19 DC 01/10/19 (Pepcid Iv) IV 17:56 01/10/19 18:53 17:57 Dicyclomine 20 mg ONCE ONCE 01/10/19 DC 01/10/19 HCl PO 18:00 01/10/19 18:52 (Bentyl) 18:12 Sodium 1,000 ml @ Q1H STAT 01/10/19 Chloride 1,000 mls/hr IV 19:23 01/10/19 20:22 Ondansetron 4 mg ONCE STAT 01/10/19 DC HCl (Zofran IV 19:23 01/10/19 Inj) 19:25 Procedures/MDM This patient presented to the emergency department with abdominal pain and was seen and evaluated by myself. My differential diagnosis included but was not limited to abdominal aortic aneurysm, appendicitis, pancreatitis, perforated peptic ulcer, perforated viscus, Boerhaaves syndrome or visceral pain such as diverticulitis, DKA, esophagitis, hepatitis or bowel obstruction. The patient was placed on a monitoring specialist, continuous pulse oximetry, and IV access was established by nursing staff. The patient did have multiple episodes of nonbloody nonbilious emesis and showed signs of clinical dehydration therefore was given a liter bolus of normal saline IV Pepcid and Zofran. She was given intravenous morphine for analgesia control. She was also given Bentyl as I felt her symptoms could likely be result of a viral etiology that caused the vomiting and diarrhea. She indicated her symptoms did occur shortly after she had gone to a barbecue at a friend's house. 12 Lead EKG tracing ordered and reviewed by myself showed: Normal sinus rhythm of 74 bpm and no arrhythmia. UT interval prolonged at 212 ms with a first-degree AV block QRS duration normal. No ST segment elevation No ST segment depression. No changes consistent with acute ischemia. The patient no severe left leg abnormalities. There is no leukocytosis. Obtain a CT scan of the abdomen which showed no evidence of obstructive uropathy perforation or diverticulitis. The patient was now able to tolerate oral intake and I did feel she could be safely discharged home. She will be sent home with antiemetics. The patient was discharged home in fair condition. They were instructed to return to the emergency department at any time if there was any worsening of their condition. The patient stated they would follow up with their PCP in the next 24-48 hours to initiate a suitable medication regimen under the care of their PCP as well as to allow their PCP to monitor any drug reactions. The patient was discharged home with prescriptions after they gave informed consent to the new medication. They were also fully informed by myself on the adverse effects and adverse drug interactions in order to provide adequate safeguards to prevent possible adverse reactions to medications. Departure Diagnosis: Primary Impression: Nausea vomiting and diarrhea Condition: GIO Walsh MD January 10, 2019 19:46
[2019-01-10 21:56] VITALS: BP 155/70; PULSE 75; RESP 18
== END 2019-01-10 22:02 | disposition home or self-care (01) ==
LOC: E/R 13:10
DX: R10.2 Pelvic and perineal pain (principal); R19.7 Diarrhea, unspecified
CPT/HCPCS: 36415; 74176; 80053; 83690; 84484; 85025; 85610; 93005; 96374; 96375; J2270; J2405; J7030; Z7502; Z7610